=== PATIENT | male | born 1930 | race Caucasian/White ===

== ENCOUNTER 2017-08-29 19:49 | Emergency (ER) | payer MEDICARE, BC ==
[~2017-08-29] VITALS: Ht 185.4 cm; Wt 54.4 kg
[~2017-08-29 19:49] MED LIST: AMBIEN 5 MG TABL5 M1 PO; AMITIZA 24 MCG24 MCG PO; BAYER CHEWABLE81 MG PO; CLEOCIN HCL300 MG PO; HYDROCODONE-APA1 TA1 PO; HYTRIN 5 M5 MG/1 CAP PO; LEVOTHYROXIN0.088 MG PO; NEURONTIN 300300 M1 PO; NEXIUM40 MG PO; PREDNISONE 10 M10 MG PO; PROSCAR 5MG TABL5 MG PO; ULTRAM 50MG TAB50 MG PO
[2017-08-29] MEDS ORDERED: TRIAMCINOLONE A80 G2 TOP (19:59)
[2017-08-29] MEDS ORDERED: VALTREX1000 MG PO (20:16)
[2017-08-29 20:29] VITALS: BP 110/77
[2017-11-03] MEDS ORDERED: ZESTORETIC 20-1 EAC3 PO (11:05)
[2017-11-03] MEDS ORDERED: CHLORDIAZEPOXIDE5 M2 PO (11:05)
[2017-11-03] MEDS ORDERED: VITAMIN D3400 UNIT PO (11:08)
[2017-11-03] MEDS ORDERED: VITAMIN C1000 MG PO (11:08)
[2017-11-03] MEDS ORDERED: CLEARLAX17 GM PO (11:10)
[2017-11-03] MEDS ORDERED: [UNRECOGNIZED DRUG - OTHER] PO (11:58)
[2017-11-03] MEDS ORDERED: B-12500 MCG PO (11:59)
[2017-11-03] MEDS ORDERED: TURMERIC500 M2 PO (12:00)
[2017-11-03] MEDS ORDERED: [UNRECOGNIZED DRUG - OTHER] PO (12:02)
[2018-01-15] MEDS ORDERED: INHALER (11:32)
[2018-02-18] MEDS ORDERED: HYDROCODON-ACE1 EAC5 PO (15:19)
[2018-02-18] MEDS ORDERED: NEURONTIN 300300 M1 PO (15:19)
== END 2017-08-29 20:30 | disposition home or self-care (01) ==
LOC: M.ERS 19:49
DX: B02.9 Zoster without complications (principal); I10 Essential (primary) hypertension; K21.9 Gastro-esophageal reflux disease without esophagitis; E03.9 Hypothyroidism, unspecified; Z88.1 Allergy status to other antibiotic agents; Z88.0 Allergy status to penicillin

== ENCOUNTER → 2017-11-03 | Outpatient (CLI) | payer MEDICARE, BC, OTHER ==
[~2017-11-03] MED LIST changes: +B-12500 MCG PO; +CHLORDIAZEPOXIDE5 M2 PO; +CLEARLAX17 GM PO; +HYDROCODON-ACE1 EAC5 PO; +INHALER; +TRIAMCINOLONE A80 G2 TOP; +TURMERIC500 M2 PO; +VALTREX1000 MG PO; +VITAMIN C1000 MG PO; +VITAMIN D3400 UNIT PO; +ZESTORETIC 20-1 EAC3 PO; +[UNRECOGNIZED DRUG - OTHER] PO; +[UNRECOGNIZED DRUG - OTHER] PO
--- NOTE | 2017-11-12 15:18 | PAINCON ---
[facility] [address] [place] [address] PAIN MANAGEMENT CONSULTATION Name: JD QUINTANA Room: [facility] JOHNElza Hoskins#: [id number] Admission: 11/03/17 Attend Phys: Juani Wei MD Discharge: Date of : 32 Report #: [id number] THIS REPORT FOR: //name// CC: Juani Rivera DO DATE OF SERVICE: 11/03/2017 CHIEF COMPLAINT: Pain and discomfort with standing and walking. FOLLOWUP HISTORY: The patient is an 87-year-old gentleman who has been referred to the pain clinic for evaluation of back and lower leg pain. The patient has had some problems with his back for a number of years. In 2014, he was evaluated and found to have spinal stenosis. At that juncture, he declined surgery. Now, his pain is becoming more and more problematic. He was offered epidural steroid injections in 2004 and 2014. He declined them. At this juncture, he feels that it might be a reasonable thing and he has come to the pain clinic with the desire to consider epidural steroid injections. The patient states that he had been quite busy and active. His says now that he is less active and more sedentary. He does have a brace on his left leg. Did recently have an outbreak of shingles. These radiated down the lateral side of his leg and down onto his foot. They have just about dried up. The patient states that he has tried physical therapy. ALLERGIES: PENICILLIN, SULFA. CURRENT MEDICATIONS: 1. Chlordiazepoxide. 2. ____ 5 mg. 3. Lisinopril/hydrochlorothiazide 20/12.5. 4. Levothyroxine 88 mg every day. 5. Multivitamins. 6. Aspirin 81 mg. 7. Vitamin D3 400 international units. 8. Clearlax 2 doses daily. 9. Vitamin B12 q. 3 days. 10. Turmeric 500 mg. 11. Curcumin 1. PAST MEDICAL HISTORY: Hypertension, polymyalgia rheumatica, GERD, BPH, hypothyroidism, normocytic anemia and generalized anxiety disorder. PAST SURGICAL HISTORY: ORIF, [place] [address] PAIN MANAGEMENT CONSULTATION Name: JD QUINTANA Room: [facility]#: [id number] Admission: 11/03/17 Attend Phys: Juani Wei MD Discharge: Date of : 32 Report #: [id number] SOCIAL HISTORY: He is retired. REVIEW OF SYSTEMS: Questionnaire 12-point review. Generally good health, fatigue and weakness, wears glasses, hearing loss, ringing in the ears, shortness of breath, painful bowel movements, awakens to urinate, joint pains, joint stiffness, weakness of the muscles, muscle pain, cramps, back pain, difficulty walking, lightheadedness, memory loss/confusion, insomnia, slow to heal, easy bruising. LABORATORY DATA: 1. MRI of the lumbar spine dated 01/10/2015, there is mild scoliosis of the lumbar spine, convex to the left. Chronic compression fracture L3, height loss estimated at nearly 90% involving the central endplate of L3. L2-L3 normal disk height with mild discogenic endplate changes, with diffuse circumferential disk bulge, which produces mild flattening of the thecal sac anteriorly. Mild bilateral facet and ligamentum flavum hypertrophy is present. He also presents with findings producing mild central canal stenosis and mild bilateral foraminal stenosis, right greater than left. 2. L3-L4 severe disk height loss with mild diffuse circumferential disk bulge along with the posterior retropulsion of the L3 vertebral body and prominent posterior bony spur arising from the superior vertebral body endplate of L4, contributing to severe central canal stenosis, severe bilateral recess stenosis and severe bilateral foraminal stenosis. The AP dimension of the spine canal measures approximately 3 mm seen on T2 image #7. The central L4 nerve root and the exiting L3 nerve roots appear compressed bilaterally. 3. L4-L5 moderate disk height loss, which is asymmetric to the left with discogenic endplate changes. A mild diffuse circumferential disk bulge is present along with posterior endplate spurring with moderate bilateral ligamentum flavum and facet hypertrophy, left greater than right. The findings produce mild central canal stenosis, severe left-sided foraminal stenosis, and moderate right-sided foraminal stenosis with possible partial compression of the exiting L4 nerve root. 4. L5-S1 mild to moderate disk height loss, which is most notable involving the posterior aspect of the disk space. Mild circumferential disk bulge is present, which abuts the thecal sac anteriorly with mild bilateral facet and ligamentum flavum hypertrophy, left greater than right, along with small posterior endplate spurs. The findings produce [id number] bilateral foraminal stenosis without significant central canal stenosis or nerve root compression. PAIN CLINIC ASSESSMENT: 1. 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 2. Height 6 feet 2 inches, weight 223 pounds, BMI is 28. 3. Vital signs: Blood pressure 115/77, heart rate 76, respiratory rate 16, room air saturation 97%, temperature 98.2. 4. Pain intensity 0 when sitting, rises to a significant point where he is forced to sit down with short ambulation from the car to the house. [address] [place] [address] PAIN MANAGEMENT CONSULTATION Name: LILIANJD D Room: [facility]#: [id number] Admission: 11/03/17 Attend Phys: Juani Wei MD Discharge: Date of : 32 Report #: [id number] 5. Blood thinner. The patient is not on a blood thinning agent. 6. History of hypertension. The patient is being treated for hypertension. Takes his medication about every third day at this juncture. 7. Opioid greater than 6 weeks. The patient is not on opioid therapy. 8. Risk assessment tool. 9. Functional assessment tool. 10. Recreational drug use. The patient denies use of recreational drugs. 11. Tobacco use. The patient denies use of tobacco. 12. Alcohol: The patient denies use of alcoholic beverages. PHYSICAL EXAMINATION: GENERAL: The patient is a well-developed white male, appears his stated age. He is alert and oriented x 3. Affect is appropriate. Speech is fluent. HEENT: Normocephalic, atraumatic. Extraocular eye muscles intact. Sclerae nonicteric. Hearing is within normal limits. Mucous membranes are moist. NECK: Without adenopathy or masses. EXTREMITIES: Upper extremity muscle strength is judged to be 4/5 for the major muscle groups in the upper extremity. MUSCULOSKELETAL: Without significant kyphosis or lordosis. Upper muscle strength is judged to be 4/5 for the major muscle groups in the upper extremity with symmetry and without neurologic compromise, lower extremity. The patient has pain and discomfort in his back after standing for a number of minutes as well as with walking. Pain becomes so intense that he must sit down. After about 5 minutes, things improved. Hose on and leans forward on a shopping cart when he goes shopping. The patient has a healing lesion along the lateral portion of his left leg. This is crusted over and is reminded of his shingles. The patient has a brace on his left leg. States that he is able to walk better without the brace, uses it intermittently, has been using it recently. Left leg discretion and hip length between left and right. IMPRESSION: 1. 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 2. Essential hypertension. 3. Hypothyroidism. 4. Benign prostatic hypertrophy. 5. Generalized anxiety disorder. RECOMMENDATIONS: We discussed treatment options with the patient and his . A model was used to indicate the area of pathology. The patient has an MRI, which was performed in 2014 showed that there was a 3 mm narrowing at the L3-L4 area. The patient and his would like to have another MRI of his back to try to note how things have progressed over that period of time. He has such a narrow area, I would like to see how narrow this is and whether or not, an epidural steroid injection would be reasonable. The patient has been given a script to have this performed. He will follow up at the [facility] in [place]. He will get a CT of his back so that a comparison [place] [address] PAIN MANAGEMENT CONSULTATION Name: JD QUINTANA Room: [facility]SHLEY Hoskins#: [id number] Admission: 11/03/17 Attend Phys: Juani Wei MD Discharge: Date of : 32 Report #: [id number] can be made. He will return to the pain clinic at which time we will consider an epidural steroid injection and note its efficacy. We have discussed the possible complication of the procedure with the patient. He and his agree and would like to make a decision after the new MRI has been processed. We would like to thank you for letting us participate in his care. We hope he continues to improve. <ELECTRONICALLY SIGNED> By: Juani Wei MD 11/12/17 1518 1438 1951N. Girma Wei MD /[facility]
== END ==
LOC: M.PC 02:48
DX: M48.061 Spinal stenosis, lumbar region without neurogenic claudication (principal); I10 Essential (primary) hypertension; E03.9 Hypothyroidism, unspecified; D29.1 Benign neoplasm of prostate; F41.1 Generalized anxiety disorder

== ENCOUNTER → 2017-12-10 | Outpatient (CLI) | payer MEDICARE, BC, OTHER ==
--- NOTE | 2017-12-16 14:16 | PAINCON ---
[address] [address] PAIN MANAGEMENT CONSULTATION Name: JD QUINTANA Room: [facility] ELOY Hoskins#: [id number] Admission: 12/10/17 Attend Phys: Juani Wei MD Discharge: Date of : 32 Report #: [id number] THIS REPORT FOR: //name// CC: Juani Rivera DATE OF SERVICE: 12/10/2017 PRIMARY CARE PHYSICIAN: Saurabh Rivera DO FOLLOWUP COMPLAINT: Continued low back pain and I decided to have an epidural injection. FOLLOWUP HISTORY: The patient is an 87-year-old gentleman who has been seen in the Pain Clinic because of chronic pain. He has had problems with his back for many years. Since 2014, he was known to have spinal stenosis. He has declined surgical intervention. He was provided the opportunity to undergo epidural steroid injections in 2004 as well as in 2014. He feels now that his pain has risen to the level that is quite problematic and he would like to proceed with an epidural steroid injection at this juncture. He has had an MRI, which showed at the L3-L4 area, severe central canal stenosis and severe bilateral recess stenosis. It has been quite narrowed at this level and measured approximately 3 mm. L4-L5 showed some severe left-sided foraminal stenosis and moderate right-sided foraminal stenosis as well. He does have pain in his low back down into his left leg and involving his ankle. The patient was on an antibiotic some time ago, but finished this a number of weeks ago. Rates his pain at a level that it can exceed 8-9. ALLERGIES: PENICILLIN, SULFA. CURRENT MEDICATIONS: 1. Lisinopril/hydrochlorothiazide 20/12.5. 2. Levothyroxine 88 mg daily. 3. Multivitamins. 4. Aspirin 81 mg. 5. Vitamin D3 400 international units. 6. Turmeric 500 mg. 7. Curcumin. 8. ClearLax 2 doses daily. PAIN CLINIC ASSESSMENT: 1. 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 2. Height 6 feet 2 inches, weight 213 pounds, BMI is 27.4. 3. Vital signs: Blood pressure 139/65, heart rate 72, respiratory rate 16, room air saturation 94%, temperature 98.0. 4. Pain 0-9 depending [place] [address] PAIN MANAGEMENT CONSULTATION Name: JD QUINTANA Room: [facility]#: [id number] Admission: 12/10/17 Attend Phys: Juani Wei MD Discharge: Date of : 32 Report #: [id number] 5. Fall risk. The patient states that he has stumbled and fell on his "butt" within the last 3 months. 6. Blood thinner. The patient is not on a blood thinning medication. 7. Hypertension. The patient is being treated for hypertension. 8. Opioid therapy greater than 6 weeks: The patient is not on an opioid medication. 9. Risk assessment tool, low for opioids. 10. Functional assessment tool. 11. Recreational drug use. The patient denies use of tobacco. He denies use of recreational drugs. 12. Alcohol. Denies use of alcoholic beverages. PHYSICAL EXAMINATION: GENERAL: The patient is a well-developed, well-nourished white male. Appears his stated age. He is alert and oriented x 3. Affect is appropriate. Speech is fluent. HEENT: Normocephalic, atraumatic. Extraocular eye muscles intact. Sclerae nonicteric. Hearing is within normal limits. Mucous membranes are moist. NECK: Without adenopathy or masses. EXTREMITIES: Upper extremity muscle strength is judged to be 4/5 for the major muscle groups in the upper extremity. MUSCULOSKELETAL: Without significant scoliosis, kyphosis or lordosis. Upper muscle strength is judged to be 4/5. The patient has pain and discomfort in his low back after standing for a few minutes as well as when he is walking. States the pain becomes very intense, he must sit down. This is after about 5 minutes of standing. The patient notes some decreased discomfort when he leans forward as on a shopping cart when he is in the store. The patient has a well healing lesion on the lateral portion of his left leg. The patient states that this is the remainder of an episode of shingles. He has a brace on his left leg. Does walk with use of the brace. Discretion noted between the left leg and right. IMPRESSION: 1. 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 2. Essential hypertension. 3. Hypothyroidism. 4. Benign prostatic hypertrophy. 5. Generalized anxiety disorder. RECOMMENDATIONS: We discussed treatment options with the patient. Risks and benefits of an epidural steroid injection were again discussed. They could include but are not limited to infection, increased muscle soreness, worsening of pain, spinal headache, paralysis and weakness, bleeding. The patient takes all this into account and elects to proceed. PROCEDURE NOTE: The patient was taken to the examination area. He was helped on to the fluoroscopy table. A pillow was placed under his abdomen to help [facility] [address] [place] [address] PAIN MANAGEMENT CONSULTATION Name: JD QUINTANA Room: [facility]#: [id number] Admission: 12/10/17 Attend Phys: Juani Wei MD Discharge: Date of : 32 Report #: [id number] bolster and position his low back area. His back was sterilely prepped with a Betadine solution and allowed to dry. Fluoroscopy using anterior and posterior viewing as well as lateral were used to place the injection. This was at the L3-L4 interspace. This area had been sterilely prepped with Betadine and infiltrated with 0.25% bupivacaine. A total of 80 mg Depo-Medrol, 40 mg triamcinolone and 2 mL of 0.25% bupivacaine was slowly injected into this area. The patient did not complain of pain or discomfort while this was going on. He was then taken to the recovery room. Band-Aid had been placed on his back. There was no bleeding. He remained in the Pain Clinic for an appropriate amount of time. He will follow up in the future for additional examination and treatment. We would like to thank you for letting us participate in his care. We hope he continues to improve. <ELECTRONICALLY SIGNED> By: Juani Wei MD 12/16/17 1416 2059 [id number]. Girma Wei MD /PMT
== END | disposition home or self-care (01) ==
LOC: M.PC 03:18
DX: M48.061 Spinal stenosis, lumbar region without neurogenic claudication (principal); M54.16 Radiculopathy, lumbar region; G89.29 Other chronic pain; E03.9 Hypothyroidism, unspecified; I10 Essential (primary) hypertension; N40.0 Benign prostatic hyperplasia without lower urinary tract symptoms; F41.9 Anxiety disorder, unspecified; Z79.899 Other long term (current) drug therapy; Z88.0 Allergy status to penicillin; Z88.2 Allergy status to sulfonamides; Z79.82 Long term (current) use of aspirin

== ENCOUNTER → 2017-12-24 | Outpatient (CLI) | payer MEDICARE, BC, OTHER ==
--- NOTE | 2018-01-22 17:38 | PAINCON ---
[facility] [address] [place] [address] PAIN MANAGEMENT CONSULTATION Name: JD QUINTANA Room: [facility] ELOY Hoskins#: [id number] Admission: 12/24/17 Attend Phys: Juani Wei MD Discharge: Date of : 32 Report #: [id number] THIS REPORT FOR: //name// CC: Juani Rivera DO DATE OF SERVICE: 12/24/2017 CHIEF COMPLAINT: Pain has improved. "My left leg and ankle pain is better. My leg does feel heavy. I was able to walk quite a bit around [facility]." "I am able to stand up and stop walking like an ape." The patient is an 87-year-old gentleman who has been followed in the pain clinic as you recall. He has significant pain and discomfort, it has been problematic since 2014. He has known spinal stenosis. He underwent an epidural steroid injection at the last visit. He feels that his low back is much better. He has less discomfort in his left foot and ankle. The pain is improved. He feels that it is just "heavy." This somewhat stagger when he is walking. Overall, his back pain is rated 0 at this point. He has had no complication from the injections. ALLERGIES: PENICILLIN, SULFA. MEDICATIONS: Lisinopril/hydrochlorothiazide 20/12.5, levothyroxine 88 mcg, multivitamins, aspirin 81 mg, vitamin D3 400 international units, turmeric 500 mg, Curcumin, ClearLax 2 doses daily. PAIN CLINIC ASSESSMENT: 1. History of osteoarthritis in the back with spinal stenosis in the lower back. 2. Height 6 feet 2 inches, weight 213 pounds, BMI 27. Vital Signs: Blood pressure 137/81, heart rate 70, respiratory rate 16, room air saturation 97%, temperature 98.3. 3. Pain intensity 0/10. 4. Fall risk. The patient states that he has stumbled and fallen over the last 3 months. 5. Blood thinner. The patient is not on a blood thinning medication. 6. Hypertension. The patient is being treated for hypertension. 7. Opioid therapy greater than 6 weeks. The patient is not on a chronic opioid medication. 8. Risk assessment tool, low for use of opioids. 9. Functional assessment tool. 10. Recreational drug use. The patient denies use of tobacco. The patient denies use of recreational drugs. 11. Alcohol: The patient [place] [address] PAIN MANAGEMENT CONSULTATION Name: LILIANJD JOSEPH Raimundo Room: [facility]#: [id number] Admission: 12/24/17 Attend Phys: Juani Wei MD Discharge: Date of : 32 Report #: [id number] PHYSICAL EXAMINATION: GENERAL: The patient is a well-developed, well-nourished white male. Appears his stated age. He is alert and oriented x 3. Affect is appropriate. Speech is fluent. HEENT: Normocephalic, atraumatic. Extraocular eye muscles intact. Sclerae nonicteric. Hearing is within normal limits. Mucous membranes are moist. NECK: Without adenopathy or masses. EXTREMITIES: Upper extremity muscle strength is judged to be 4/5 for the major muscle groups with symmetry. MUSCULOSKELETAL: Without significant scoliosis, kyphosis or lordosis. The patient has pain in his lower back, which has improved since his last injection. He has been able to ambulate more with less pain as well as noted some improved pain in the left ankle. Does have a brace on his left foot. IMPRESSION: 1. Spinal stenosis of lumbar spine. 2. Essential hypertension. 3. Hypothyroidism. 4. Benign prostatic hypertrophy. 5. Generalized anxiety disorder. RECOMMENDATIONS: We discussed treatment options with the patient. At this juncture, he feels that things have improved. He is moving better. He is having less pain and discomfort. Noted that the pain in his foot on the left side has improved. All in all, he is happy with the way things are going. I would like to continue with a conservative approach. He will follow up in the future as needed. We would like to thank you for letting us participate in his care. We hope he continues to improve. <ELECTRONICALLY SIGNED> By: Juani Wei MD 01/22/18 1738 1436 [id number]. Girma Wei MD /nt
== END ==
LOC: M.PC 03:30
DX: M48.061 Spinal stenosis, lumbar region without neurogenic claudication (principal); I10 Essential (primary) hypertension; E03.9 Hypothyroidism, unspecified; N40.1 Benign prostatic hyperplasia with lower urinary tract symptoms; F41.9 Anxiety disorder, unspecified

== ENCOUNTER → 2018-02-04 | Outpatient (CLI) | payer MEDICARE, BC, OTHER ==
--- NOTE | 2018-03-01 10:00 | PAINCON ---
[facility] [address] [place] [address] PAIN MANAGEMENT CONSULTATION Name: JD QUINTANA Room: [facility] E[facility]Y Hoskins#: [id number] Admission: 02/04/18 Attend Phys: Juani Wei MD Discharge: Date of : 34 Report #: [id number] THIS REPORT FOR: //name// CC: Juani Rivera DATE OF SERVICE: 02/04/2018 FOLLOWUP COMPLAINT: Here for an additional epidural injection. FOLLOWUP HISTORY: The patient is an 87-year-old gentleman. He suffered from spinal stenosis. States that he is able to get up and walk some distance after the last injection. States that he is able to go from his car to [place]. He walk around [place] and shop. That was pretty good. At this juncture, he is having pain getting up and walking from his living room to the kitchen. Notes that the pain can rise to the level of 10. He underwent an epidural steroid injection. Gleaned benefit from it. He returns today feeling and thinks that another injection is warranted. Involves his left side. He feels that the pain is severe. This causes him to lean to the right side while he is walking. He would like to undergo an epidural injection to see whether or not things again would improve. ALLERGIES: PENICILLIN. CURRENT MEDICATIONS: Lisinopril/hydrochlorothiazide 20 mg/12.5, levothyroxine 88 mcg, multivitamin, aspirin 81 mg, vitamin D3 400 units, turmeric 500 mg, curcumin, ClearLax 2 doses daily. PAIN CLINIC ASSESSMENT AND PQRS: 1. 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 2. Height 6 feet 2 inches, weight 218 pounds, BMI is 28. 3. Vital signs: Blood pressure 119/58, heart rate 81, respiratory rate 16, room air saturation 95%, temperature 98.1. 4. Pain score 0/10 when sitting, can rise to 10/10 with certain activities such as walking or prolonged standing. 5. Fall history: The patient has not fallen in the last 3 months. 6. Blood thinner. The patient is on a blood thinning medication. 7. Hypertension. The patient is being treated for hypertension. 8. Opioid therapy greater than 6 weeks. The patient is not on an opioid therapy. 9. Risk assessment tool, low for use of opioid medication. 10. Functional assessment tool. 11. Recreational drug use: The patient denies use of recreational drugs. 12. Tobacco: The patient denies use of tobacco. 13. Alcohol: The patient [place] [address] PAIN MANAGEMENT CONSULTATION Name: JD QUINTANA Room: [facility]#: [id number] Admission: 02/04/18 Attend Phys: Juani Wei MD Discharge: Date of : 34 Report #: [id number] PHYSICAL EXAMINATION: GENERAL: The patient is a well-developed, well-nourished 87-year-old gentleman. It looks appropriate and good for his age. Speech is fluent. HEENT: Normocephalic, atraumatic. Extraocular eye muscles intact. Hearing is within normal limits. Mucous membranes are moist. NECK: Without adenopathy or masses. EXTREMITIES: Upper extremity muscle strength is judged to be 4/5 for the major muscle groups, lower extremity muscle strength is judged to be 5-/5 for the lower muscle groups. Notes pain and discomfort with prolonged standing. The patient is without significant scoliosis, kyphosis or lordosis. Does have some pain in the lower portion of his back. Notes some pain that radiates down into his left leg and involves his left ankle. IMPRESSION: 1. Spinal stenosis of lumbar spine with pain and discomfort in the left ankle and left leg. 2. Essential hypertension. 3. Hypothyroidism. 4. Benign prostatic hypertrophy. 5. Generalized anxiety. RECOMMENDATIONS: We discussed treatment options with the patient. Risks and benefits of an epidural steroid injection were again reviewed. Possible complications of the procedure were discussed. They could include but are not limited to infection, increased muscle soreness, headache, bleeding, worsening of pain, no improvement in pain and the patient elects to proceed. PROCEDURE NOTE: The patient was placed in the prone position. His back was sterilely prepped with a Betadine solution. At the L3-L4 interspace, 0.25% bupivacaine was injected. A 17-gauge Tuohy with loss of resistance technique was used to gain access to the epidural space. There was no CSF, heme or paresthesia. A total of 80 mg of Depo-Medrol, 40 mg of triamcinolone and 2 mL of 0.25% bupivacaine was injected. Approximately 10 seconds fluoroscopy time was used. The patient remained in the pain clinic for an appropriate amount of time. He will follow up in the future as needed. <ELECTRONICALLY SIGNED> By: Juani Wei MD 03/01/18 [id number]. Girma Wei MD /ABDELRAHMAN
== END | disposition home or self-care (01) ==
LOC: M.PC 01:47
DX: M54.16 Radiculopathy, lumbar region (principal); M48.061 Spinal stenosis, lumbar region without neurogenic claudication; I10 Essential (primary) hypertension; E03.9 Hypothyroidism, unspecified; N40.0 Benign prostatic hyperplasia without lower urinary tract symptoms; F41.1 Generalized anxiety disorder; Z88.0 Allergy status to penicillin; Z79.82 Long term (current) use of aspirin; Z79.899 Other long term (current) drug therapy; Z98.890 Other specified postprocedural states; Z88.2 Allergy status to sulfonamides

== ENCOUNTER → 2018-02-18 | Outpatient (CLI) | payer MEDICARE, BC, OTHER ==
--- NOTE | ~2018-02-18 | PAINCON ---
[facility] [address] [place] [address] PAIN MANAGEMENT CONSULTATION Name: JD QUINTANA Room: [facility] JOHN Aidee#: [id number] Admission: 02/18/18 Attend Phys: Juani Wei MD Discharge: Date of : 32 Report #: [id number] THIS REPORT FOR: //name// CC: Juani Rivera FOLLOW UP HISTORY: Low back and left leg pain. HISTORY: The patient is an 87-year-old gentleman who has been seen in the pain clinic. He suffers from spinal stenosis. He has undergone an epidural steroid injection. He has noted some improvement in his spinal stenosis symptomatology since last injection. He has noted some increased pain since with the last injection. At this juncture, he would like to proceed with another injection. He has no pain while sitting, but notes that his pain can increase with activities of daily living. ALLERGIES: PENICILLIN. CURRENT MEDICATIONS: Lisinopril/hydrochlorothiazide 20/12.5, levothyroxine 88 mcg, multivitamin, aspirin 81 mg, vitamin D3 400 units, turmeric 500 mg, curcumin, Clearlax 2 doses daily. PAIN CLINIC ASSESSMENT/PQRS: 1. History of osteoarthritis in the back with spinal stenosis. The patient is not being treated for rheumatoid arthritis. 2. Height is 6 feet 2 inches, weight 218 pounds, BMI is 28. 3. Vital signs: Blood pressure 119/62, heart rate 77, respiratory rate 16, room air saturation is 96%, temperature is 98.2. 4. Pain score 0 when sitting, can rise to a level 10/10 with activities and prolonged standing. 5. Fall history: The patient has not fallen in the last 3 months. 6. Blood thinner. The patient is not on a blood thinning medication. 7. Hypertension. The patient has been treated for hypertension. 8. Opioid therapy greater than 6 weeks. The patient is not on opioid regimen. 9. Risk assessment tool, low for opioid use. 10. Functional assessment tool. 11. Recreational drug use. The patient denies use of recreational drugs. 12. Tobacco: The patient denies use of tobacco. 13. Alcohol: The patient denies use of alcoholic beverages. PHYSICAL EXAMINATION: GENERAL: The patient is a well-developed, well-nourished 87-year-old gentleman. Looks his appropriate age. Speech is fluent. HEENT: Normocephalic, atraumatic. Extraocular eye muscles intact. Sclerae is nonicteric. Mucous membranes are moist. NECK: Without adenopathy or masses. EXTREMITIES: Upper extremity muscle strength is judged to be 4/5 [place] [address] PAIN MANAGEMENT CONSULTATION Name: JD QUINTANA Room: [facility] Aidee#: [id number] Admission: 02/18/18 Attend Phys: Juani Wei MD Discharge: Date of : 32 Report #: [id number] muscle groups. Lower extremity muscle strength is judged to be 5-/5 for the major muscle groups. The patient has increased pain and discomfort with prolonged standing in the pain becomes more problematic with prolonged standing. The patient is without significant scoliosis, kyphosis or lordosis. The patient does have some pain in the lower portion of his back with prolonged standing. Pain radiates down to his left leg and involves his ankle. IMPRESSION: 1. Spinal stenosis of lumbar spine with discomfort in the left ankle and left leg. 2. Essential hypertension. 3. Hypothyroidism. 4. Benign prostatic hypertrophy. 5. Generalized anxiety. RECOMMENDATIONS: We discussed treatment options with the patient. At this juncture, we will renew the patient's medication and a script for gabapentin 300 mg 1 p.o. t.i.d. will be rewritten. The patient will also try hydrocodone 10 mg 1 p.o. t.i.d. as needed. He will then call us and tell us how with this medication is working. We would like to thank you for letting us participate in his care. We hope he continues to improve. By: [id number]. Girma Wei MD /nelia
== END ==
LOC: M.PC 14:00
DX: M48.061 Spinal stenosis, lumbar region without neurogenic claudication (principal)